=== PATIENT | female | born 1965 | race American Indian/Alaskan Native ===

== ENCOUNTER 2021-10-21 14:24 | Emergency (ER) | payer BC ==
[2021-10-21 14:28] VITALS: BP 120/60
--- NOTE | 2021-10-21 15:53 | Event Note ---
ED Screening Note Date of service: 10/21/21 (n) ED Screening Note: 56-year-old black female with a past medical history of hypertension diabetes presents to the ER for evaluation of chest pain that started yesterday. She states that she is also having shortness of breath, nausea, and dizziness. She states that pain got a little better last night but when she woke up this morning pain started again. Pain is to the left chest, nonradiating, and nonreproducible. She also complains of pain and swelling to her right calf. She was seen at urgent care prior to arrival and was found to have a slightly abnormal EKG and was sent here for further evaluation. This initial assessment/diagnostic orders/clinical plan/treatment(s) is/are subject to change based on patients health status, clinical progression and re- assessment by fellow clinical providers in the ED. Further treatment and workup at subsequent clinical providers discretion. Patient/guardian urged not to elope from the ED as their condition may be serious if not clinically assessed and managed. Initial orders include: CBC, CMP, troponin, D-dimer. Chest x-ray
--- NOTE | 2021-10-21 16:17 | XRay Report ---
CHEST 2 VIEWS INDICATION / CLINICAL INFORMATION: chest pain. COMPARISON: None available. FINDINGS: SUPPORT DEVICES: None. HEART / MEDIASTINUM: No significant abnormality. LUNGS / PLEURA: No significant pulmonary abnormality. No significant pleural effusion. No pneumothora x. ADDITIONAL FINDINGS: No significant additional findings. IMPRESSION: 1. No acute abnormality of the chest. Signer Name: Sim Carlton MD Signed: 10/21/2021 4:13 PM Workstation Name: [id number]
[2021-10-21 16:37] LABS: Basophils # (Auto) 0.1 K/mm3 (0.0-0.1); Basophils % (Auto) 0.6 % (0.0-1.8); Eosinophils # (Auto) 0.1 K/mm3 (0.0-0.4); Eosinophils % (Auto) 0.6 % (0.0-4.3); Hematocrit 35.7 % (30.3-42.9); Hemoglobin 12.3 gm/dl (10.1-14.3); Lymphocytes # (Auto) 3.8 K/mm3 (1.2-5.4); Lymphocytes % (Auto) 36.8 % (13.4-35.0); Mean Corpuscular HGB Conc 34 % (30-34); Mean Corpuscular Volume 95 fl (79-97); Monocytes # (Auto) 0.7 K/mm3 (0.0-0.8); Monocytes % (Auto) 6.9 % (0.0-7.3); Platelet Count 383 K/mm3 (140-440); Red Blood Count 3.77 M/mm3 (3.65-5.03); Red Cell Distribution Width 13.1 % (13.2-15.2)
[2021-10-21 16:59] LABS: INR 0.82 (0.87-1.13)
[2021-10-21 17:00] LABS: Partial Thromboplastin Time 26.9 Sec. (24.2-36.6)
[2021-10-21 17:01] LABS: Alanine Aminotransferase 6 units/L (7-56); Albumin 4.2 g/dL (3.9-5); Blood Urea Nitrogen 16 mg/dL (7-17); Calcium 10.2 mg/dL (8.4-10.2); Hemolysis Index 3
[2021-10-21 17:07] LABS: BUN/Creatinine Ratio 23
[2021-10-21] MEDS ORDERED: MORPHINE 4 MG/1 ML INJ IV ONE (17:55)
[2021-10-21] MEDS ORDERED: ONDANSETRON 4 MG/2 ML INJ IV ONE (17:55)
[2021-10-21] MEDS ORDERED: MORPHINE 2 MG/1 ML INJ ONE (18:50)
[2021-10-21] MEDS ORDERED: HYDROcodone/ACETAMINOPHEN 5-325 MG TAB PO ONE (19:37)
--- NOTE | 2021-10-21 19:41 | Emergency Department Report ---
ED Chest Pain HPI - General Chief Complaint: Chest Pain Stated Complaint: ABNORMAL EKG Time Seen by Provider: 10/21/21 17:48 Source: patient, EMS Mode of arrival: Ambulatory Limitations: No Limitations - History of Present Illness Initial Comments: CHEST PAIN, DIZZINESS SINCE LAST NIGHT. TOOK IBUPROFEN. WENT TO URGENT CARE, ABNORMAL EKG. Complaint: chest pain -: Gradual, hour(s) Onset: during rest Pain Location: left chest Pain Radiation: none Severity scale (0 -10): 7 Quality: tightness, aching Consistency: constant Improves With: nothing Worsens With: nothing Heart Score - HEART Score History: Slightly suspicious EKG: Normal Age: 45-65 Risk factors: 1-2 risk factors Troponin: < normal limit HEART Score: 2 - EKG Read Time Time EKG Completed: 19:40 EKG Read Time: 19:40 - Critical Actions Critical Actions: 0-3 pts:0.9-1.7%risk of adverse cardiac event.Candidate for discharge ED Review of Systems ROS: Stated complaint: ABNORMAL EKG Other details as noted in HPI Constitutional: denies: chills, fever Eyes: denies: eye pain, eye discharge, vision change ENT: denies: ear pain, throat pain Respiratory: denies: cough, shortness of breath, wheezing Cardiovascular: denies: chest pain, palpitations Endocrine: no symptoms reported Gastrointestinal: denies: abdominal pain, nausea, diarrhea Genitourinary: denies: urgency, dysuria, discharge Musculoskeletal: denies: back pain, joint swelling, arthralgia Skin: denies: rash, lesions Neurological: denies: headache, weakness, paresthesias Psychiatric: denies: anxiety, depression Hematological/Lymphatic: denies: easy bleeding, easy bruising ED Past Medical Hx - Past Medical History Previous Medical History?: No Hx Hypertension: No ED Physical Exam - General Limitations: No Limitations ED Course Vital Signs 10/21/21 10/21/21 14:25 18:55 Temperature 98 F Pulse Rate 78 Respiratory 16 14 Rate Blood Pressure 120/60 [Right] O2 Sat by Pulse 98 Oximetry - Reevaluation(s) Reevaluation #1: 10/21/21 19:38 work up negative , repeat trop was negative , x ray clear refusd pain meds wanted narco, ekg showed LAE, will refer to card this week CONY score - Cony Score Age > 65: (0) No Aspirin use within the Past 7 Days: (0) No 3 or more CAD Risk Factors: (0) No 2 or more Angina events in past 24 hrs: (0) No Known CAD with more than 50% Stenosis: (0) No Elevated Cardiac Markers: (0) No ST Deviation Greater than 0.5mm: (0) No CONY Score: 0 ED Medical Decision Making - Lab Data Result diagrams: 10/21/21 16:20 10/21/21 16:20 - EKG Data -: EKG Interpreted by Me EKG shows normal: sinus rhythm Rate: normal - EKG Data When compared to previous EKG there are: no significant change, other (LAE) Critical care attestation.: If time is entered above; I have spent that time in minutes in the direct care of this critically ill patient, excluding procedure time. ED Disposition Clinical Impression: Chest pain Disposition: 01 HOME / SELF CARE / HOMELESS Is pt being admited?: No Does the pt Need Aspirin: No Condition: Stable Instructions: Nonspecific Chest Pain, Adult Referrals: PRIMARY CAREMD [Primary Care Provider] - 3-5 Days GUERO DELAROSA MD [Staff Physician] - 3-5 Days
--- NOTE | 2021-10-22 11:48 | Electrocardiograph Report ---
[facility] Test Date: 2021-10-21 Test Time: 16:33:44 Pat Name: MARIELLA COMER Department: Room: Gender: F Wash Box Operator: TORRES : 1965 Requested By: CHIQUITA CLINTON Order Number: [id number] Reading MD: Tj Baltazar Measurements Intervals [place] Rate: 79 P: 59 MS: 160 QRS: 15 QRSD: 79 T: 56 QT: 380 QTc: 436 Interpretive Statements Sinus rhythm Probable left atrial enlargement No previous ECG available for comparison Electronically Signed On 10-22-2021 10:48:22 EST by Tj Baltazar
== END 2021-10-21 20:20 | disposition home or self-care (01) ==
LOC: ED 14:24
DX: R07.9 Chest pain, unspecified (principal)
CPT/HCPCS: 36415; 71046; 80053; 84484; 85025; 85379; 85610; 85730; 93005; 93010; 96374; 96375; 99284; J2270; J2405

== ENCOUNTER 2021-11-05 07:54 | Day surgery (SDC) | payer BC ==
[2021-11-05] MEDS ORDERED: ASPIRIN EC 325 MG TAB PO SCH (08:00)
[2021-11-05 08:35] LABS: Basophils # (Auto) 0.1 K/mm3 (0.0-0.1); Basophils % (Auto) 0.8 % (0.0-1.8); Eosinophils # (Auto) 0.1 K/mm3 (0.0-0.4); Eosinophils % (Auto) 1.1 % (0.0-4.3); Hematocrit 38.4 % (30.3-42.9); Hemoglobin 12.5 gm/dl (10.1-14.3); Lymphocytes # (Auto) 2.5 K/mm3 (1.2-5.4); Lymphocytes % (Auto) 32.2 % (13.4-35.0); Mean Corpuscular HGB Conc 33 % (30-34); Mean Corpuscular Volume 94 fl (79-97); Monocytes # (Auto) 0.5 K/mm3 (0.0-0.8); Monocytes % (Auto) 6.8 % (0.0-7.3); Platelet Count 445 K/mm3 (140-440); Red Blood Count 4.09 M/mm3 (3.65-5.03); Red Cell Distribution Width 12.5 % (13.2-15.2)
[2021-11-05] MEDS: SODIUM CHLORIDE 0.9% 500 ML 500 ML IV SCH ×2 (08:41→09:17)
[2021-11-05 08:46] LABS: INR 0.84 (0.87-1.13)
[2021-11-05 08:50] LABS: Blood Urea Nitrogen 11 mg/dL (7-17); Calcium 9.8 mg/dL (8.4-10.2); Hemolysis Index 27
[2021-11-05 08:52] LABS: BUN/Creatinine Ratio 22
[2021-11-05] MEDS ORDERED: HEPARIN/NS 5000 UNIT/500ML 1,000 ML IR ONE (08:57)
[2021-11-05] MEDS ORDERED: HEPARIN 10,000 UNITS/10 ML VIAL ONE (08:57)
[2021-11-05] MEDS ORDERED: fentaNYL 100 MCG/2 ML INJ ONE (08:58)
[2021-11-05] MEDS ORDERED: MIDAZOLAM 2 MG/2 ML INJ ONE (08:58)
[2021-11-05] MEDS ORDERED: NITROGLYCERIN SYRINGE 3 ML ONE (08:58)
[2021-11-05] MEDS ORDERED: VERAPAMIL 5 MG/2 ML INJ ONE (08:58)
[2021-11-05] MEDS ORDERED: LIDOCAINE (2%) 20 MG/1 ML VIAL 20 ML MDV INFILTRATI ONE (09:03)
--- NOTE | 2021-11-05 09:27 | Electrocardiograph Report ---
[facility] Test Date: 2021-11-05 Test Time: 08:52:00 Pat Name: MARIELLA COMER Department: Room: Gender: F Box Shook Patcher: ADELINA : 1965 Requested By: ALON ANTONY Order Number: [id number] Reading MD: Alon Antony Measurements Intervals [place] Rate: 71 P: 54 IA: 156 QRS: 9 QRSD: 81 T: 28 QT: 395 QTc: 430 Interpretive Statements Sinus rhythm Compared to ECG 10/21/2021 16:33:44 No significant changes Electronically Signed On 11-05-2021 9:26:55 EST by Alon Antony
--- NOTE | 2021-11-05 10:19 | Cardiac Catherization Report ---
DATE OF SERVICE: 11/05/2021 LEFT HEART CATHETERIZATION CLINICAL INFORMATION: A 56-year-old female with hypertension and had chest pain with abnormal treadmill stress test, here for left heart catheterization. Procedure was done with moderate sedation started 9:30, finished 9:45, 15 minutes of moderate sedation. DESCRIPTION OF PROCEDURE: Procedure was done via the right radial artery. A 6-Citizen [place] radial sheath inserted. Left system with JL3.5 catheter. Left main is large and patent, bifurcates into large LAD that is patent with moderate tortuosity. Diagonal 1 is medium caliber was patent. Circumflex, large caliber vessel, goes into a large OM1 moderate tortuosity several upper and lower branches. [place] circuit was patent. RCA engaged with JR4 is a large, dominant vessel with moderate severe tortuosity. PDA, PLV are medium caliber vessels that are long that cover the whole lateral wall. LV gram done in [place] and [place] view shows normal LV function, EF 55-60%. LVEDP 19 mmHg, LV is 131, aortic is 130/79. No gradient across the aortic valve on pullback. A 5-Citizen [place] catheters all taken over guidewire. A 6-[place] radial sheath was DC. Radial band applied. No hematoma, no bleeding. SUMMARY: Left main patent, LAD patent, circumflex patent, OM1 patent, RCA large, dominant, patent with moderate severe tortuosity. Normal LV function. Continue risk factor modification, post cath care. Discussed in detail with the patient and the patient's family. TID: [id number] RECEIPT: [id number] BLAS
[2021-11-05] MEDS ORDERED: ACETAMINOPHEN 325 MG TAB ONE (10:38)
[2021-11-05] MEDS ORDERED: traMADol 50 MG TAB PO PRN (11:00)
[2021-11-05] MEDS ORDERED: HYDROcodone/ACETAMINOPHEN 5-325 MG TAB PO PRN (11:00)
[2021-11-05] MEDS ORDERED: ACETAMINOPHEN 325 MG TAB PO SCH (11:00)
[2021-11-05 11:35] VITALS: BP 110/70
--- NOTE | 2021-11-05 11:50 | Short Stay Summary ---
Short Stay Documentation Date of service: 11/05/21 - History H&P: obtained from office - Allergies and Medications Current Medications: Allergies No Known Allergies Allergy (Verified 11/05/21 08:22) Home Medications Medication Instructions Recorded Confirmed Last Taken Type Dulaglutide [Trulicity] 0.75 mg SQ QWEEK 11/05/21 11/05/21 11/03/21 History Levothyroxine [Synthroid] 125 mcg PO QAM 11/05/21 11/05/21 11/04/21 History Liothyronine Sodium [Cytomel] 50 mcg PO QDAY 11/05/21 11/05/21 11/04/21 History Lisinopril [Zestril] 5 mg PO DAILY 11/05/21 11/05/21 11/04/21 History Metformin HCl [metFORMIN ER 1,000 mg PO BID 11/05/21 11/05/21 11/04/21 History Osmotic] Active Medications Hydrocodone Bitart/Acetaminophen (Hydrocodone/Acetaminophen 5-325 Mg Tab) 1 each PO Q4H PRN PRN Reason: Pain, Moderate (4-6) Aspirin (Aspirin Ec 325 Mg Tab) 325 mg PO ONCE@0800 ALTON Stop: 11/05/21 17:00 Last Admin: 11/05/21 08:41 Dose: 325 mg Sodium Chloride (Nacl 0.9% 500 Ml) 500 mls @ 50 mls/hr IV DIRECT ALTON Stop: 11/05/21 18:59 Last Admin: 11/05/21 09:17 Dose: 50 mls/hr Tramadol HCl (Tramadol 50 Mg Tab) 50 mg PO Q4H PRN PRN Reason: Pain, Mild (1-3) - Physical exam Integumentary: other (Dressing clean dry and intact no signs of bleeding or hematoma) - Brief post op/procedure progress note Date of procedure: 11/05/21 Pre-op diagnosis: Abnormal stress test Post-op diagnosis: other Anesthesia: local (Minimal disease) Estimated blood loss: minimal - Hospital course Hospital course: Patient presents today for cardiac cath through radial site. Patient tolerated procedure well with no complications - Disposition Condition at discharge: Good Disposition: 01 HOME / SELF CARE / HOMELESS - Discharge Diagnoses (1) Hypertension Status: Acute (2) Hyperlipidemia Status: Acute (3) Obesity Status: Acute (4) Hypothyroidism Status: Acute (5) Abnormal stress test Status: Acute Short Stay Discharge Plan Activity: advance as tolerated Diet: low fat, low cholesterol, low salt Wound: keep clean and dry, per your surgeon's advice Follow up with: PRIMARY CARE, [Primary Care Provider] - 7 Days FORTUNATO MATUTE MD [Staff Physician] - 7 Days (Patient is follow-up with Dr. Matute on 11/25/2021 at 1 PM at our [place] location. Phone #[phone])
== END 2021-11-05 13:15 | disposition home or self-care (01) ==
LOC: CATHLABREC 07:54
PROVIDERS: ATTEND Internal Medicine
DX: R07.89 Other chest pain (principal); R94.39 Abnormal result of other cardiovascular function study; I10 Essential (primary) hypertension; E78.5 Hyperlipidemia, unspecified; E03.9 Hypothyroidism, unspecified; E66.9 Obesity, unspecified; D64.9 Anemia, unspecified; Z79.899 Other long term (current) drug therapy; Z79.84 Long term (current) use of oral hypoglycemic drugs; Z90.49 Acquired absence of other specified parts of digestive tract; Z98.51 Tubal ligation status; Z98.890 Other specified postprocedural states; Z68.39 Body mass index [BMI] 39.0-39.9, adult
CPT/HCPCS: 36415; 80048; 85025; 85610; 85730; 93005; 93458; 99156; C1894; J1644; J1815; J2250; J3010; J3490; J7040; Q9967